=== PATIENT | female | born 1960 | race Caucasian/White ===

== ENCOUNTER 2019-11-27 06:33 | Day surgery (SDC) | payer MEDICARE ==
[~2019-11-27 06:33] MED LIST: Lactated Ringers 1,000 ML IV SCH; Sodium Chloride 0.9% 10 ML SDV IV PRN; Sodium Chloride 0.9% 10 ML Syringe FLUSH PRN; Sodium Chloride 0.9% 2.5 ML Syringe FLUSH PRN
[2019-11-27] MEDS ORDERED: Lidocaine 1% with EPINEPHrine 1:100,000 20 ML MDV ONE (07:16)
[2019-11-27] MEDS ORDERED: Lidocaine 2% 5 ML SDV ONE (07:18)
[2019-11-27] MEDS ORDERED: fentaNYL 100 MCG/2 ML SDV ONE (07:19)
[2019-11-27] MEDS ORDERED: Midazolam 1 MG/ML 2 ML SDV ONE (07:19)
[2019-11-27] MEDS ORDERED: Propofol 200 MG/20 ML SDV ONE (07:19)
--- NOTE | 2019-11-27 07:21 | PCM.PREANE ---
Preanesthetic Assessment - Anesthesia/Transfusion/Family Hx Anesthesia History: Prior Anesthesia Without Reaction Family History of Anesthesia Reaction: No Transfusion History: No Prior Transfusion(s) - Review of Systems General: No Symptoms Pulmonary: No Symptoms Cardiovascular: No Symptoms Gastrointestinal: No Symptoms Neurological: No Symptoms Other: Reports: None - Physical Assessment NPO Status Date: 11/26/19 NPO Status Time: 22:00 Vital Signs: Last Vital Signs Temp 98.4 F 11/27/19 06:35 Pulse 99 11/27/19 06:35 Resp 18 11/27/19 06:35 BP 145/87 H 11/27/19 06:35 Pulse Ox 95 11/27/19 06:35 Height: 5 ft 8.5 in Weight: 107.501 kg ASA Class: 2 Mental Status: Alert & Oriented x3 Airway Class: Mallampati = 2 Dentition: Reports: Normal Dentition ROM/Head Extension: Full Lungs: Clear to Auscultation, Normal Respiratory Effort Cardiovascular: Regular Rate, Regular Rhythm - Lab Values: Laboratory Last Values WBC 6.05 K/uL (4.0-11.0) 11/27/19 07:00 RBC 5.08 M/uL (4.30-5.90) 11/27/19 07:00 Hgb 15.6 g/dL (12.0-16.0) 11/27/19 07:00 Hct 46.4 % (36.0-46.0) H 11/27/19 07:00 MCV 91.3 fL (80.0-98.0) 11/27/19 07:00 MCH 30.7 pg (27.0-32.0) 11/27/19 07:00 MCHC 33.6 g/dL (31.0-37.0) 11/27/19 07:00 RDW Std Deviation 42.5 fl (28.0-62.0) 11/27/19 07:00 RDW Coeff of Cullen 13 % (11.0-15.0) 11/27/19 07:00 Plt Count 239 K/uL (150-400) 11/27/19 07:00 MPV 9.20 fL (7.40-12.00) 11/27/19 07:00 Nucleated RBC % 0.0 /100WBC 11/27/19 07:00 Nucleated RBCs # 0 K/uL 11/27/19 07:00 Urine HCG, Qual NEGATIVE (NEGATIVE) 11/27/19 06:45 - Allergies Allergies/Adverse Reactions: Allergies Allergy/AdvReac Type Severity Reaction Status Date / Time ibuprofen Allergy Swelling Verified 11/21/19 09:31 [email or web address] Allergy Confusion Verified 11/21/19 09:31 - Blood Blood Available: No - Acknowledgements Anesthesia Type Planned: General Anesthesia Pt an Appropriate Candidate for the Planned Anesthesia: Yes Alternatives and Risks of Anesthesia Discussed w Pt/Guardian: Yes Pt/Guardian Understands and Agrees with Anesthesia Plan: Yes Additional Comments: PMH: bipolar, gerd, smoker, allergy to motrin- soft tissue swelling around eyes , has not tried other NSAIDs PLAN: ga/lma PreAnesthesia Questionnaire HEENT History: Reports: Other (See Below) Other HEENT History: wears glasses Cardiovascular History: Reports: None Respiratory History: Reports: None Gastrointestinal History: Reports: GERD Genitourinary History: Reports: Renal Calculus BOX STRAPPER History: Reports: Musculoskeletal History: Reports: Fracture Other Musculoskeletal History: hx fx foot Neurological History: Reports: None Psychiatric History: Reports: Anxiety, Bipolar, Depression Endocrine/Metabolic History: Reports: Obesity/BMI 30+ Hematologic History: Reports: None Immunologic History: Reports: None Oncologic (Cancer) History: Reports: None Dermatologic History: Reports: None - Past Surgical History Head Surgeries/Procedures: Reports: None HEENT Surgical History: Reports: None Cardiovascular Surgical History: Reports: None Respiratory Surgical History: Reports: None GI Surgical History: Reports: None Female Surgical History: Reports: Breast Biopsy, Tubal Ligation Endocrine Surgical History: Reports: None Neurological Surgical History: Reports: None Musculoskeletal Surgical History: Reports: Shoulder Surgery Oncologic Surgical History: Reports: None Dermatological Surgical History: Reports: Skin Biopsy - SUBSTANCE USE Smoking Status *Q: Former Smoker Tobacco Use Within Last Twelve Months: No - HOME MEDS Home Medications: Home Meds Calcium Carbonate/Vitamin D3 [Calcium 500 + Vit D Caplet] 1 tab PO DAILY [History] Fluticasone Propionate [Flonase Allergy Relief] 1 spray NASBOTH DAILY PRN [History] Multivitamin [Multivitamins] 1 tab PO DAILY 11/21/19 [History] Omeprazole 20 mg PO DAILY 11/21/19 [History] Venlafaxine HCl [Venlafaxine ER] 150 mg PO DAILY 11/21/19 [History] Zolpidem [Ambien] 10 mg PO BEDTIME 11/21/19 [History] lamoTRIgine 200 mg PO BEDTIME 11/21/19 [History] - CURRENT (IN HOUSE) MEDS Current Meds: Current Medications Lactated Ringer's (Ringers, Lactated) 1,000 mls @ 500 mls/hr IV BOLUS ROCHELLE Last Admin: 11/27/19 07:05 Dose: 500 mls/hr Sodium Chloride (Saline Flush) 10 ml FLUSH ASDIRECTED PRN PRN Reason: Keep Vein Open Sodium Chloride (Saline Flush) 2.5 ml FLUSH ASDIRECTED PRN PRN Reason: Keep Vein Open Sodium Chloride (Normal Saline) 10 ml IV ASDIRECTED PRN PRN Reason: IV Use Sodium Chloride (Saline Flush) 10 ml FLUSH ASDIRECTED PRN PRN Reason: Keep Vein Open Sodium Chloride (Saline Flush) 2.5 ml FLUSH ASDIRECTED PRN PRN Reason: Keep Vein Open Sodium Chloride (Normal Saline) 10 ml IV ASDIRECTED PRN PRN Reason: IV Use
[2019-11-27] MEDS ORDERED: Dexamethasone 4 MG/ML 5 ML MDV ONE (08:12)
[2019-11-27] MEDS ORDERED: Ondansetron 4 MG/2 ML SDV ONE (08:12)
[2019-11-27] MEDS ORDERED: Albuterol 0.083% 2.5 MG/3 ML Neb Soln NEB PRN (08:22)
[2019-11-27] MEDS ORDERED: Atropine 0.1 MG/ML 10 ML Syringe IVPUSH PRN ×2 (08:22)
[2019-11-27] MEDS ORDERED: EPINEPHrine 1:10,000 1 MG/10 ML Syringe IVPUSH PRN (08:22)
[2019-11-27] MEDS ORDERED: 50% Dextrose in Water 50 ML Syringe IVPUSH PRN (08:22)
[2019-11-27] MEDS ORDERED: Naloxone 0.4 MG/ML Syringe IVPUSH PRN (08:22)
[2019-11-27] MEDS ORDERED: fentaNYL 100 MCG/2 ML SDV IVPUSH PRN (08:22)
--- NOTE | 2019-11-27 08:42 | PCM.OPNOTE ---
- General Post-Op/Procedure Note Date of Surgery/Procedure: 11/27/19 Operative Procedure(s): Loop electrosurgical excision procedure Findings: Normal appearing cervix Pre Op Diagnosis: Cervical Intraepithelial neoplasia 2 Post-Op Diagnosis: Cervical Intraepithelial Neoplasia 2 Anesthesia Technique: General ET Tube Primary Surgeon: Elsa Falcon Anesthesia Provider: Jose Juan Hardwick Pathology: Cervical top and bottom hat and ECC Fluid Replacement, Intraop: 900 Complications: None Condition: Good
[2019-11-27] MEDS ORDERED: Acetaminophen/HYDROcodone 325-5 MG Tab PO PRN (08:44)
--- NOTE | 2019-11-27 11:26 | PCM48HPAN ---
Post Anesthesia Note - EVALUATION WITHIN 48HRS OF ANESTHETIC Vital Signs in Normal Range: Yes Patient Participated in Evaluation: Yes Respiratory Function Stable: Yes Airway Patent: Yes Cardiovascular Function Stable: Yes Hydration Status Stable: Yes Pain Control Satisfactory: Yes Nausea and Vomiting Control Satisfactory: Yes Mental Status Recovered: Yes Vital Signs: Last Vital Signs Temp 97.3 F 11/27/19 09:08 Pulse 81 11/27/19 09:29 Resp 16 11/27/19 09:29 BP 144/72 H 11/27/19 09:29 Pulse Ox 96 11/27/19 09:29
--- NOTE | 2019-11-27 11:26 | PCM.POSTAN ---
POST ANESTHESIA ASSESSMENT - MENTAL STATUS Mental Status: Alert, Oriented - VITAL SIGNS Vital Signs: Last Vital Signs Temp 97.3 F 11/27/19 09:08 Pulse 81 11/27/19 09:29 Resp 16 11/27/19 09:29 BP 144/72 H 11/27/19 09:29 Pulse Ox 96 11/27/19 09:29 - RESPIRATORY Respiratory Status: Respiratory Rate WNL, Airway Patent, O2 Saturation Stable - CARDIOVASCULAR CV Status: Pulse Rate WNL, Blood Pressure Stable - GASTROINTESTINAL GI Status: No Symptoms - POST OP HYDRATION Hydration Status: Adequate & Stable
--- NOTE | 2019-11-28 02:55 | OR ---
SURGEON: GARRETT RAMAN DATE OF PROCEDURE: 11/27/2019 PREOPERATIVE DIAGNOSIS: A 59-year-old, para 3, with cervical intraepithelial neoplasia 2 in endocervical curettage. POSTOPERATIVE DIAGNOSIS: Cervical intraepithelial neoplasia 2 in endocervical curettage. PROCEDURE: Loop electrosurgical excision procedure. ESTIMATED BLOOD LOSS: 5 mL. ANESTHESIA: General. COMPLICATIONS: None PATHOLOGY: Cervical Specimen , Endocervical specimen NOTES AND FINDING: A normal-appearing cervix. Examination under anesthesia showed a normal-sized anteverted uterus. DESCRIPTION OF PROCEDURE: With the patient in supine position, general anesthesia was administered. The patient was put in dorsal lithotomy position with Alex stirrups and draped in the normal sterile fashion. An insulated LEEP speculum was placed into the vagina. Lugol iodine was used to delineate any abnormalities, with none seen. Then, large wire loop electrode was passed from right to the left with the first sweep. Then, with a top hat was taken from right to left with a smaller loop . The top cervical specimen was tagged at 12 o'clock position. An ECC was then obtained. The base of the cervix was then coagulated. Monsel solution was applied to the base. Hemostasis was noted. The patient tolerated the procedure well and was taken to the recovery room in stable condition. DOT GONZALEZ /[id number] MTDD
== END 2019-11-27 09:52 | disposition home or self-care (01) ==
LOC: MW.SDS 06:33
PROVIDERS: ATTEND Obstetrics & Gynecology
DX: D06.0 Carcinoma in situ of endocervix (principal); E78.00 Pure hypercholesterolemia, unspecified; K21.9 Gastro-esophageal reflux disease without esophagitis; F41.9 Anxiety disorder, unspecified; F31.9 Bipolar disorder, unspecified; E66.9 Obesity, unspecified; Z68.35 Body mass index [BMI] 35.0-35.9, adult; Z87.891 Personal history of nicotine dependence; Z79.899 Other long term (current) drug therapy; Z88.6 Allergy status to analgesic agent; Z88.8 Allergy status to other drugs, medicaments and biological substances
CPT/HCPCS: 36415; 57522; 81025; 85027; J1100; J2001; J2250; J2405; J2704; J3010; J7120; 00940; 88305; 88307

== ENCOUNTER 2021-09-15 11:10 | Day surgery (SDC) | payer MEDICARE, SELFPAY ==
[~2021-09-15 11:10] MED LIST changes: -Sodium Chloride 0.9% 10 ML SDV IV PRN; -Sodium Chloride 0.9% 10 ML Syringe FLUSH PRN; -Sodium Chloride 0.9% 2.5 ML Syringe FLUSH PRN
--- NOTE | 2021-09-15 12:16 | PCM.PREANE ---
Preanesthetic Assessment - Anesthesia/Transfusion/Family Hx Anesthesia History: Prior Anesthesia Without Reaction Transfusion History: No Prior Transfusion(s) - Review of Systems General: No Symptoms Pulmonary: No Symptoms Cardiovascular: No Symptoms Gastrointestinal: No Symptoms Neurological: No Symptoms Other: Reports: None - Physical Assessment NPO Status Date: 09/15/21 NPO Status Time: 00:00 Height: 5 ft 9 in Weight: 229 lb ASA Class: 3 Mental Status: Alert & Oriented x3 Airway Class: Mallampati = 2 Dentition: Reports: Normal Dentition ROM/Head Extension: Full Lungs: Clear to Auscultation, Normal Respiratory Effort Cardiovascular: Regular Rate, Regular Rhythm - Lab Values: Laboratory Last Values SARS-CoV-2 RNA (ZEV) NEGATIVE (NEGATIVE) 09/15/21 10:58 - Allergies Allergies/Adverse Reactions: Allergies Allergy/AdvReac Type Severity Reaction Status Date / Time ibuprofen Allergy Swelling Verified 09/09/21 08:26 Iodinated Contrast Media Allergy Hives Verified 09/09/21 10:10 trazodone Allergy Confusion Verified 09/09/21 08:26 - Acknowledgements Anesthesia Type Planned: General Anesthesia Pt an Appropriate Candidate for the Planned Anesthesia: Yes Alternatives and Risks of Anesthesia Discussed w Pt/Guardian: Yes Pt/Guardian Understands and Agrees with Anesthesia Plan: Yes PreAnesthesia Questionnaire HEENT History: Reports: Allergic Rhinitis, Other (See Below) Other HEENT History: wears glasses Cardiovascular History: Reports: None Respiratory History: Reports: None Gastrointestinal History: Reports: GERD Genitourinary History: Reports: Renal Calculus, UTI, Recurrent CARE ASST History: Reports: Musculoskeletal History: Reports: Back Pain, Chronic, Fracture Other Musculoskeletal History: hx fx foot Neurological History: Reports: None Psychiatric History: Reports: Anxiety, Bipolar, Depression Endocrine/Metabolic History: Reports: Obesity/BMI 30+, Other (See Below) Other Endocrine/Metabolic History: "prediabetic" Hematologic History: Reports: None Immunologic History: Reports: None Oncologic (Cancer) History: Reports: None Dermatologic History: Reports: None - Past Surgical History Head Surgeries/Procedures: Reports: None HEENT Surgical History: Reports: None Cardiovascular Surgical History: Reports: None Respiratory Surgical History: Reports: None GI Surgical History: Reports: Colonoscopy Female Surgical History: Reports: LEEP, Tubal Ligation Endocrine Surgical History: Reports: None Neurological Surgical History: Reports: None Musculoskeletal Surgical History: Reports: Shoulder Surgery Other Musculoskeletal Surgeries/Procedures:: right RTCR Oncologic Surgical History: Reports: None Dermatological Surgical History: Reports: Skin Biopsy - SUBSTANCE USE Tobacco Use Status *Q: Former Tobacco User Tobacco Use Within Last Twelve Months: No - HOME MEDS Home Medications: Home Meds Calcium Carbonate/Vitamin D3 [Calcium 500 + Vit D Caplet] 1 tab PO DAILY 11/21/19 [History] Omeprazole 20 mg PO DAILY 11/21/19 [History] Venlafaxine HCl [Venlafaxine ER] 150 mg PO DAILY 11/21/19 [History] Zolpidem [Ambien] 10 mg PO BEDTIME 11/21/19 [History] lamoTRIgine 200 mg PO BEDTIME 11/21/19 [History] Docusate Sodium [Stool Softener] 1 tab PO ASDIRECTED PRN 09/09/21 [History] Fluticasone Propionate [Flonase Allergy Relief] 1 spray NASBOTH DAILY 09/09/21 [History] metFORMIN HCl [Metformin HCl] 500 mg PO DAILY 09/09/21 [History] - CURRENT (IN HOUSE) MEDS Current Meds: Current Medications Lactated Ringer's (Ringers, Lactated) 1,000 mls @ 125 mls/hr IV ASDIRECTED ROCHELLE
[2021-09-15] MEDS ORDERED: Propofol 200 MG/20 ML SDV ONE ×2 (13:55→13:56)
[2021-09-15] MEDS ORDERED: fentaNYL 100 MCG/2 ML SDV ONE (13:56)
--- NOTE | 2021-09-15 14:10 | PCM48HPAN ---
Post Anesthesia Note - EVALUATION WITHIN 48HRS OF ANESTHETIC Patient Participated in Evaluation: Yes Respiratory Function Stable: Yes Airway Patent: Yes Cardiovascular Function Stable: Yes Hydration Status Stable: Yes Pain Control Satisfactory: Yes Nausea and Vomiting Control Satisfactory: Yes Mental Status Recovered: Yes Vital Signs: Last Vital Signs Temp 97.2 F 09/15/21 14:07 Pulse 79 09/15/21 14:07 Resp 13 09/15/21 14:07 BP 119/68 09/15/21 14:07 Pulse Ox 97 09/15/21 14:07
--- NOTE | 2021-09-15 14:10 | PCM.POSTAN ---
POST ANESTHESIA ASSESSMENT - MENTAL STATUS Mental Status: Alert, Oriented - VITAL SIGNS Vital Signs: Last Vital Signs Temp 97.2 F 09/15/21 14:07 Pulse 79 09/15/21 14:07 Resp 13 09/15/21 14:07 BP 119/68 09/15/21 14:07 Pulse Ox 97 09/15/21 14:07 - RESPIRATORY Respiratory Status: Respiratory Rate WNL, Airway Patent, O2 Saturation Stable - CARDIOVASCULAR CV Status: Pulse Rate WNL, Blood Pressure Stable - GASTROINTESTINAL GI Status: No Symptoms - POST OP HYDRATION Hydration Status: Adequate & Stable
--- NOTE | 2021-09-15 14:20 | PCM.OPNOTE ---
- General Post-Op/Procedure Note Date of Surgery/Procedure: 09/15/21 Operative Procedure(s): Colonoscopy Pre Op Diagnosis: Family history of colon cancer. Desire for colorectal cancer screening. Post-Op Diagnosis: No evidence of neoplasia. Anesthesia Technique: MAC (ASA III) Primary Surgeon: Emerson De La Rosa Condition: Good Free Text/Narrative:: DICTATION [id number] CPT CODE 19847
[2021-09-15] MEDS ORDERED: Lactated Ringers 1,000 ML IV SCH (14:30)
--- NOTE | 2021-09-15 14:33 | OR ---
SURGEON: Emerson De La Roas M.D. DATE OF PROCEDURE: 09/15/2021 OPERATION PERFORMED: Colonoscopy. PRIMARY SURGEON: Emerson De La Rosa M.D. ANESTHESIA: MAC. ASA CLASSIFICATION: III. PREOPERATIVE DIAGNOSES: 1. Family history of colon cancer. 2. Desire for colorectal cancer screening. POSTOPERATIVE DIAGNOSIS: No evidence of neoplasia. DESCRIPTION OF PROCEDURE: The patient was taken to the endoscopy room and positioned on the endoscopy table in the left lateral decubitus position. Time-out was called for appropriate identification of the patient and procedure. Monitored anesthesia care was provided. The colonoscope was inserted into the rectum and advanced with moderate difficulty to the cecum. The cecum was identified by internal landmarks and external pressure. Despite multiple attempts, the colonoscope could not be retroflexed in the cecum. The colonoscope was then straightened and slowly withdrawn. The cecum, ascending colon, hepatic flexure, transverse colon, splenic flexure, descending colon, sigmoid colon, and rectum were well visualized. No tumors, polyps, diverticula, or angiodysplastic changes were noted anywhere in the lower gastrointestinal tract. Once the colonoscope was withdrawn to the rectum, it was retroflexed to visualize the anal orifice from above. Again, no tumors or polyps were seen, and there are no acute hemorrhoidal changes. The colonoscope was then straightened, the rectum aspirated, and the colonoscope removed. The patient tolerated the procedure well and was taken to recovery room in satisfactory condition. CLAIRE GONZALEZ /[id number] MORGAN
== END 2021-09-15 14:40 | disposition home or self-care (01) ==
LOC: MW.SDS 11:10
PROVIDERS: ATTEND Surgery
DX: Z12.11 Encounter for screening for malignant neoplasm of colon (principal); E66.9 Obesity, unspecified; Z80.0 Family history of malignant neoplasm of digestive organs; Z91.041 Radiographic dye allergy status; Z88.8 Allergy status to other drugs, medicaments and biological substances; Z79.899 Other long term (current) drug therapy; Z98.890 Other specified postprocedural states; Z87.891 Personal history of nicotine dependence; Z01.812 Encounter for preprocedural laboratory examination; Z20.822 Contact with and (suspected) exposure to COVID-19; Z68.33 Body mass index [BMI] 33.0-33.9, adult
CPT/HCPCS: G0105; J2704; J3010; J7120; U0002